=== PATIENT | female | born 1955 | race Caucasian/White ===

== ENCOUNTER 2016-12-16 21:34 | Emergency (ER) | payer BC ==
[~2016-12-16] VITALS: Ht 167.6 cm; Wt 72.6 kg
[2016-12-16] MEDS ORDERED: NITR100C58 PO (21:59)
[2016-12-16] MEDS ORDERED: ZOLP5TAB PO (21:59)
--- NOTE | 2016-12-16 21:59 | NUR ---
MEDICATION PT REPORTS SHE TOOK THE FIRST DOSE OF MACROBID THIS MORNING AFTER SWELLING STARTED.
[2016-12-16] MEDS ORDERED: BENADRYL IV STA (22:10)
[2016-12-16] MEDS ORDERED: SOLU-MEDROL IV STA (22:10)
--- NOTE | 2016-12-16 22:10 | ER.PDOC ---
General Chief Complaint: General Complaint Stated Complaint: SWOLLEN JAW TRAVEL OUT OF US: No Time seen by MD: 22:07 Source: patient Exam Limitations: no limitations History of Present Illness Initial Comments 61 year old white female with facial swelling. Underwent removal of kidney stone yesterday under [place]. Did well. However, this am, patient is gradually experiencing right jaw swelling which is getting worse to involve lips, tongue. Some minor changes in voice was also noted. Some erythema of right arm reported. Timing/Duration: other (this am) Severity: moderate Allergies: Coded Allergies: Penicillins (Verified Allergy, Unknown, Rash, 12/16/16) Sulfa (Sulfonamide Antibiotics) (Verified Allergy, Unknown, 12/16/16) Home Meds Reported Medications Zolpidem Tartrate (AMBIEN) 5 Mg Tablet, 5 MG PO HS, TABLET 12/16/16 Nitrofurantoin Monohyd/M-Cryst (MACROBID 100 MG CAPSULE) 100 Mg Capsule, 100 MG PO BID, CAPSULE 12/16/16 Past Medical History Medical History: no pertinent history Surgical History: hysterectomy Family History Significant Family History: no pertinent family hx Social History Smoking: non-smoker Alcohol Use: occassionally Drug Use: none Review of Systems Constitutional: denies no symptoms reported, denies see HPI, denies chills, denies diaphoresis, denies fever, denies malaise, denies weakness, denies other EENTM: see HPI Respiratory: denies no symptoms reported, denies see HPI, denies cough, denies orthopnea, denies shortness of breath, denies stridor, denies wheezing, denies other Cardiovascular: denies no symptoms reported, denies see HPI, denies chest pain , denies edema, denies palpitations, denies syncope, denies other Gastrointestinal: denies no symptoms reported, denies see HPI, denies abdominal pain, denies constipation, denies diarrhea, denies nausea, denies vomiting, denies other Genitourinary: other (kidney stones) Musculoskeletal: denies no symptoms reported, denies see HPI, denies back pain , denies gout, denies joint pain, denies joint swelling, denies muscle pain, denies muscle stiffness, denies neck pain, denies other Skin: denies no symptoms reported, denies see HPI, denies change in color, denies change in hair/nails, denies dryness, denies lesions, denies lumps, denies rash, denies other Psychiatric/Neurological: denies no symptoms reported, denies see HPI, denies anxiety, denies depressed, denies emotional problems, denies headache, denies numbness, denies paresthesia, denies pre-existing deficit, denies seizure, denies tingling, denies tremors, denies weakness, denies other Hematologic/Lymphatic: denies no symptoms reported, denies see HPI, denies anemia, denies blood clots, denies easy bleeding, denies easy bruising, denies swollen glands, denies other Immunological/Allergic: denies no symptoms reported, denies see HPI, denies food allergy, denies grass allergy, denies mold allergy, denies pollen allergy, denies HIV/AIDS, denies transplant Physical Exam General Appearance: No Apparent Distress, WD/WN EENT: pharynx nml, swelling (both upper and lower lips, tongue, right jaw) Neck: Non-Tender, Full Range of Motion Respiratory: chest non-tender, lungs clear, normal breath sounds, no respiratory distress, no accessory muscle use CVS: reg rate & rhythm, no murmur, no gallop, pulses nml, nml capillary refill Gastrointestinal: Normal Bowel Sounds, No Organomegaly, No Pulsatile Mass, Non Tender Extremities: Normal Range of Motion, Non-Tender, Normal Inspection, No Pedal Edema, No Calf Tenderness, Normal Capillary Refill 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 Skin: Normal Color, Warm/Dry Lymphatic: No Adenopathy Results/Orders Results/Orders Administered Medications Medications (Trade) Dose Ordered Sig/Najma Route PRN Reason Start Time Stop Time Status Last Admin Dose Admin Methylprednisolone Sodium Succinate (Solu-Medrol) 125 mg STAT STAT IV 12/16/16 22:10 12/16/16 22:12 DC 12/16/16 22:28 Diphenhydramine HCl (Benadryl) 25 mg STAT STAT IV 12/16/16 22:10 12/16/16 22:12 DC 12/16/16 22:28 Progress Progress [place] better on recheck at 1115pm Course Blood Pressure Systolic: 171 Blood Pressure Diastolic: 79 Blood Pressure Mean: 109 Departure Time of Disposition: 23:16 Disposition: 01 HOME, SELF-CARE Impression: Primary Impression: Angioneurotic edema, initial encounter Condition: Stable Referrals: PCP,UNKNOWN (PCP) PRIMARY CARE PROVIDER Additional Instructions: May go home Follow up PCP Prednisone taper OTC Benadryl RTER prn No nuts, eggs, sea foods consumption for now LUZ BENTLEY MD Dec 16, 2016 22:10
[2016-12-16] MEDS ORDERED: BENADRYL ONE (22:17)
--- NOTE | 2016-12-16 22:17 | NUR ---
PT AMBULATED TO BATHROOM WITHOUT DIFFICULTY.
[2016-12-16] MEDS ORDERED: SOLU-MEDROL ONE (22:18)
--- NOTE | 2016-12-16 22:20 | NUR ---
PT RETURNED TO ROOM AFTER GOING TO THE BATHROOM, DENIES ANY CONCERNS WITH URINATION.
--- NOTE | 2016-12-16 22:24 | PCM.EKG ---
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
--- NOTE | 2016-12-16 23:46 | NUR ---
DISCHARGE DISCHARGE INSTRUCTIONS AND PRESCRIPTION MEDICATION DISCUSSED. PT AND FRIEND VERBALIZED UNDERSTANDING. PT REPORTS SHE IS FEELING BETTER AND IS READY TO GO HOME. REPORTS DECREASED SWELLING TO RT SIDE OF FACE AND RIGHT UPPER ARM. DECREASED REDNESS TO RIGHT UPPER ARM.
== END 2016-12-16 23:46 | disposition home or self-care (01) ==
LOC: ER 21:34
DX: T78.3XXA Angioneurotic edema, initial encounter (principal); Z88.0 Allergy status to penicillin; Z90.710 Acquired absence of both cervix and uterus; N20.0 Calculus of kidney; Z79.899 Other long term (current) drug therapy
CPT/HCPCS: 93005; 96374; 96375; 99284; J1200; J2930